=== PATIENT | female | born 1985 | race American Indian/Alaskan Native ===

== ENCOUNTER 2016-08-28 17:54 | Emergency (ER) | payer MEDICAID ==
--- NOTE | 2016-08-28 20:44 | Emergency Department Report ---
ED Fall HPI - General Chief Complaint: Fall Stated Complaint: ANGELINA/ AFTER FALL IN SHOWER Time Seen by Provider: 08/28/16 20:43 Source: patient Mode of arrival: Ambulatory - History of Present Illness Initial Comments: Patient here reports that she slipped and fell on Tuesday and hit the side of fluids on about that. She is complaining of pain to her right lateral rib area and complaining the pain with taking deep breaths in. She denies any shortness of breath. Denies any head injury or loss of consciousness. She denies any bruising but said she has swelling to the area. Pain is 4 out of 10. She says she took [id number] pain medication but it did not help her. Denies any chest pain. MD Complaint: fall Onset/Timin -: days(s) Fall From: standing When Fall Occurred: # days [employer] (3 days) Fall Witnessed: no Place Fall Occurred: home Loss of Consciousness: none Prolonged Down Time?: no Symptoms Prior to Fall: none Location: other (right lateral rib) Severity: mild Severity scale (0 -10): 4 Quality: aching Context: tripped/slipped Associated Symptoms: denies: headache, neck pain, numbness, weakness, chest paint, shortness of breath, abdominal pain, hematuria, unable to walk, lightheaded, vertigo, confusion - Related Data Previous Rx's Medication Instructions Recorded Last Taken Type Acetaminophen/Codeine [Tylenol #3] 1 tab PO Q6H PRN #12 tab 08/28/16 Unknown Rx Ibuprofen [Motrin] 600 mg PO Q8H PRN #15 tablet 08/28/16 Unknown Rx Allergies Allergy/AdvReac Type Severity Reaction Status Date / Time No Known Allergies Allergy Verified 08/28/16 18:38 ED Review of Systems ROS: Stated complaint: ANGELINA/ AFTER FALL IN SHOWER Other details as noted in HPI Comment: All other systems reviewed and negative Constitutional: denies: chills, fever ENT: denies: throat pain, congestion Respiratory: no symptoms reported Cardiovascular: other (right lateral rib pain). denies: chest pain, palpitations, edema, syncope Gastrointestinal: denies: abdominal pain, nausea, vomiting Musculoskeletal: other (rib pain right lateral). denies: back pain, joint swelling, arthralgia Skin: denies: rash Neurological: denies: headache ED Past Medical Hx - Past Medical History Previous Medical History?: No - Surgical History Past Surgical History?: Yes Additional Surgical History: - Family History Family history: no significant - Social History Smoking Status: Current Every Day Smoker Substance Use Type: None - Medications Home Medications: Home Medications Medication Instructions Recorded Confirmed Last Taken Type Acetaminophen/Codeine [Tylenol #3] 1 tab PO Q6H PRN #12 tab 08/28/16 Unknown Rx Ibuprofen [Motrin] 600 mg PO Q8H PRN #15 tablet 08/28/16 Unknown Rx ED Physical Exam - General Limitations: No Limitations General appearance: alert, in no apparent distress - Head Head exam: Present: atraumatic, normocephalic, normal inspection - Eye Eye exam: Present: normal appearance, PERRL, EOMI. Absent: periorbital swelling , periorbital tenderness Pupils: Present: normal accommodation - Neck Neck exam: Present: normal inspection, full ROM. Absent: tenderness, meningismus, lymphadenopathy - Expanded Neck Exam Expanded Neck exam: Absent: tenderness, midline deformity, anterior neck swelling, tracheal deviation - Respiratory Respiratory exam: Present: normal lung sounds bilaterally, chest wall tenderness (tenderness to palpate to right lateral rib cage mid axillary line). Absent: respiratory distress, wheezes, rales, rhonchi, stridor, accessory muscle use, decreased breath sounds, prolonged expiratory - Cardiovascular Cardiovascular Exam: Present: regular rate, normal rhythm, normal heart sounds - GI/Abdominal GI/Abdominal exam: Present: soft, normal bowel sounds. Absent: distended, tenderness, guarding, rebound, rigid - Extremities Exam Extremities exam: Present: normal inspection, full ROM, normal capillary refill. Absent: tenderness, pedal edema, joint swelling, calf tenderness - Back Exam Back exam: Present: normal inspection, full ROM. Absent: tenderness, CVA tenderness (R), CVA tenderness (L), muscle spasm, paraspinal tenderness, vertebral tenderness, rash noted - Neurological Exam Neurological exam: Present: alert, oriented X3, normal gait, reflexes normal. Absent: motor sensory deficit - Psychiatric Psychiatric exam: Present: normal affect, normal mood - Skin Skin exam: Present: warm, dry, intact, normal color. Absent: rash, erythema, abrasion, ecchymosis ED Course Vital Signs 08/28/16 18:39 Temperature 97.6 F Pulse Rate 90 Respiratory 18 Rate Blood Pressure 161/98 O2 Sat by Pulse 100 Oximetry - Reevaluation(s) Reevaluation #1: 08/28/16 23:07 Patient given Toradol 60 mg IM and emergency room to manage right rib pain. She said pain was down to 2 out of 10. 08/28/16 23:07 ED Medical Decision Making - Radiology Data Radiology results: report reviewed X-ray right rib series with PA chest revealed no acute cardiopulmonary processes and no rib fracture. - Medical Decision Making ED course: I discussed the patient that her x-ray revealed that she does not have any broken rib and that she is having pain from falling and hitting her Rib. Discussed with her that I will put her on pain medication and that she needs to take deep breath and cough every 3 hours to expand her lungs. Was given Toradol 60 mg IM and emergency room to help with pain which relieved her pain. Patient discharged home with prescription for [place] and to follow up with her primary care physician and to 3 days and if she does not have one patient is to follow-up with [facility]. Critical care attestation.: If time is entered above; I have spent that time in minutes in the direct care of this critically ill patient, excluding procedure time. ED Disposition Clinical Impression: Rib pain on right side Accidental fall Qualifiers: Encounter type: initial encounter Qualified Code(s): W19.XXXA - Unspecified fall, initial encounter Disposition: DISCHARGED TO HOME OR SELFCARE Is pt being admited?: No Does the pt Need Aspirin: No Condition: Stable Instructions: Thoracic Pain (ED), Fall Prevention (ED) Additional Instructions: Please rest for 72 hours. Tylenol 3 can cause You to be drowsy supposed to not drive or operate heavy machinery while taking this medication Primary care physician in 2-3 days and if he does not have one day neutrophils follow-up with outside Medical Center remember to deep breathe and cough every 3 hours to keep lungs expanded Prescriptions: Acetaminophen/Codeine [Tylenol #3] 1 tab PO Q6H PRN #12 tab PRN Reason: Pain , Severe (7-10) Ibuprofen [Motrin] 600 mg PO Q8H PRN #15 tablet PRN Reason: Pain Referrals: PRIMARY CARE, [Primary Care Provider] - 2-3 Days [facility] [Outside] - 2-3 Days Forms: Work/School Release Form(ED)
[2016-08-28] MEDS ORDERED: TORADOL IM ONE (21:40)
--- NOTE | 2016-08-28 22:42 | XRay Report ---
FINAL REPORT PROCEDURE: XR RIBS UNI W PA CHEST 3 RT TECHNIQUE: RIGHT rib radiographs, 3 views of the ribs, including PA chest. HISTORY: Fall with rib pain rt lateral rib COMPARISON: No prior studies are available for comparison. FINDINGS: Heart: Normal. Mediastinum/Vessels: Normal. Lungs: Normal. Pleural space: Normal. Pneumothorax: None. Bony thorax/ribs: No significant abnormality. IMPRESSION: Normal Examination.
[2016-08-28 23:35] VITALS: BP 144/90
== END 2016-08-28 23:37 | disposition home or self-care (01) ==
LOC: ED 17:54
DX: R07.81 Pleurodynia (principal); F17.200 Nicotine dependence, unspecified, uncomplicated; W19.XXXA Unspecified fall, initial encounter; Y93.89 Activity, other specified; Y99.8 Other external cause status; Y92.009 Unspecified place in unspecified non-institutional (private) residence as the place of occurrence of the external cause
CPT/HCPCS: 71101; 81025; 96372; 99283; J1885